=== PATIENT | male | born 1985 | race Caucasian/White ===

== ENCOUNTER 2021-11-24 15:35 | Inpatient (IN) | payer OTHER ==
[2021-11-24 17:58] VITALS: BMI 22.4
[2021-11-24] MEDS ORDERED: MAGNESIUM CITRATE 300 ML BOTTLE PO PRN (18:41)
[2021-11-24] MEDS ORDERED: chlordiazePOXIDE HCL 25 MG CAPSULE PO PRN (18:41)
[2021-11-24] MEDS ORDERED: DICYCLOMINE HCL 10 MG CAPSULE PO PRN (18:41)
[2021-11-24] MEDS ORDERED: ACETAMINOPHEN 325 MG TABLET (FP) PO PRN ×2 (18:41)
[2021-11-24] MEDS ORDERED: MAG HYDROX/AL HYDROX/SIMETH 30 ML UNIT-DOSE CUP PO PRN (18:41)
[2021-11-24] MEDS ORDERED: IBUPROFEN 600 MG TABLET (FP) PO PRN (18:41)
[2021-11-24] MEDS ORDERED: NICOTINE POLACRILEX 2 MG GUM BUC PRN (18:41)
[2021-11-24] MEDS ORDERED: IBUPROFEN 400 MG TABLET (FP) PO PRN (18:41)
[2021-11-24] MEDS ORDERED: ONDANSETRON *ODT* 4 MG TABLET SL PRN (18:41)
[2021-11-24] MEDS ORDERED: BISMUTH SUBSALICYLATE 524 MG/30 ML PO PRN (18:41)
[2021-11-24] MEDS ORDERED: LOPERAMIDE HCL 2 MG CAPSULE PO PRN (18:41)
[2021-11-24] MEDS ORDERED: MAGNESIUM HYDROX 2400MG/30ML ORAL SUSPENSION 30 ML CUP PO PRN (18:41)
[2021-11-24] MEDS ORDERED: METHOCARBAMOL 500 MG TABLET PO PRN (18:41)
[2021-11-24] MEDS ORDERED: BENZOCAINE/MENTHOL (CHLORASEPTIC ) LOZENGE MM PRN (18:41)
[2021-11-24] MEDS ORDERED: chlordiazePOXIDE HCL 25 MG CAPSULE PO ONE (19:22)
[2021-11-24] MEDS: MELATONIN 5 MG TABLETS PO SCH (22:13)
[2021-11-24] MEDS: chlordiazePOXIDE HCL 25 MG CAPSULE PO SCH (22:14)
[2021-11-24] MEDS: hydrOXYzine PAMOATE 25 MG CAPSULE (FP) PO SCH (22:15)
[2021-11-24] MEDS: THIAMINE HCL 100 MG TABLET (FP) PO SCH (22:15)
[2021-11-25] MEDS: hydrOXYzine PAMOATE 25 MG CAPSULE (FP) PO SCH ×4 (05:51→17:55)
[2021-11-25] MEDS: chlordiazePOXIDE HCL 25 MG CAPSULE PO SCH ×4 (05:51→22:10)
[2021-11-25] MEDS: PRENATAL VITAMINS W/ FOLIC ACID TABLET (FP) PO SCH (10:52)
[2021-11-25 13:46] LABS: HEMATOCRIT 48.4 % (35.4-49); HEMOGLOBIN 16.1 GM/dL (11.7-16.9); MCH 32.9 pg (25.7-33.7); MCHC 33.3 g/dl (32.0-35.9); MEAN CELL VOLUME 98.7 fl (80-96); MEAN PLT VOLUME 8.2 fl (7.5-11.1); PLATELET COUNT 186 10^3/uL (134-434); RBC 4.91 M/mm3 (4.00-5.60); RDW 12.9 % (11.9-15.9); WHITE BLOOD COUNT 4.6 K/mm3 (4.0-10.0)
[2021-11-25 13:50] LABS: CALCIUM 9.1 mg/dL (8.5-10.1)
[2021-11-25 13:51] LABS: ALBUMIN 3.8 g/dl (3.4-5.0); BLOOD UREA NITROGEN 5.8 mg/dL (7-18)
[2021-11-25 13:55] LABS: CREATININE 0.9 mg/dL (0.55-1.3)
[2021-11-25 13:56] LABS: BILIRUBIN,TOTAL 1.6 mg/dL (0.2-1); TOT PROT 7.6 g/dl (6.4-8.2)
[2021-11-25] MEDS ORDERED: cloNIDine HCL 0.1 MG TABLET PO ONE (18:02)
[2021-11-25] MEDS ORDERED: ESCITALOPRAM OXALATE 20 MG TABLET PO ONE (18:02)
[2021-11-25] MEDS ORDERED: hydrOXYzine PAMOATE 25 MG CAPSULE (FP) PO PRN (18:03)
[2021-11-25] MEDS: MELATONIN 5 MG TABLETS PO SCH (22:10)
[2021-11-25] MEDS: THIAMINE HCL 100 MG TABLET (FP) PO SCH (22:10)
[2021-11-25] MEDS ORDERED: HYDROCORTISONE 0.5% TOPICAL CREAM 30 GM TUBE TP PRN (23:46)
[2021-11-26] MEDS: chlordiazePOXIDE HCL 25 MG CAPSULE PO SCH ×2 (06:25→10:05)
[2021-11-26] MEDS ORDERED: ESCITALOPRAM OXALATE 20 MG TABLET PO SCH (10:00)
[2021-11-26] MEDS: PRENATAL VITAMINS W/ FOLIC ACID TABLET (FP) PO SCH (10:05)
[2021-11-26] MEDS ORDERED: LORazepam 1 MG TABLET PO PRN (11:01)
[2021-11-26] MEDS ORDERED: PANTOPRAZOLE 20 MG TABLET PO SCH (11:30)
[2021-11-26] MEDS ORDERED: LORazepam 1 MG TABLET PO SCH (17:00)
[2021-11-26] MEDS: LORazepam 1 MG TABLET PO SCH ×2 (18:00→22:05)
[2021-11-26] MEDS: THIAMINE HCL 100 MG TABLET (FP) PO SCH (22:06)
[2021-11-26] MEDS: MELATONIN 5 MG TABLETS PO SCH (22:06)
[2021-11-27] MEDS ORDERED: chlordiazePOXIDE HCL 10 MG CAPSULE PO PRN
[2021-11-27] MEDS ORDERED: LORazepam 0.5 MG TABLET PO PRN
[2021-11-27] MEDS ORDERED: LORazepam 0.5 MG TABLET PO SCH (05:00)
[2021-11-27] MEDS ORDERED: chlordiazePOXIDE HCL 10 MG CAPSULE PO SCH (05:00)
[2021-11-27 09:14] VITALS: BP 141/93; PULSE 75; RESP 18; TEMP 97.5
[2021-11-28] MEDS ORDERED: chlordiazePOXIDE HCL 10 MG CAPSULE PO SCH (05:00)
[2021-11-29] MEDS ORDERED: chlordiazePOXIDE HCL 10 MG CAPSULE PO ONE (05:00)
[2021-11-30] MEDS ORDERED: LORazepam 0.5 MG TABLET PO ONE (05:00)
== END 2021-11-27 09:56 | disposition home or self-care (01) | DRG 775 ==
LOC: YASAS 15:35 → Y3N 20:12
PROVIDERS: ADMIT Allergy & Immunology; ATTEND Surgery
PROC: HZ2ZZZZ Detoxification Services for Substance Abuse Treatment (ICD-10-PCS; principal; 2021-11-24)
DX: F10.230 Alcohol dependence with withdrawal, uncomplicated (principal); F12.10 Cannabis abuse, uncomplicated; F41.9 Anxiety disorder, unspecified; F42.9 Obsessive-compulsive disorder, unspecified; R74.8 Abnormal levels of other serum enzymes; Z86.59 Personal history of other mental and behavioral disorders
CPT/HCPCS: 36415; 80053; 85027; 86780; C9803-CS; J0735; U0003; U0005